=== PATIENT | male | born 1940 | race Caucasian/White ===

== ENCOUNTER 2017-01-18 09:13 | Inpatient (IN) | payer OTHER ==
--- NOTE | 2017-01-18 09:33 | CPEKG ---
Heart Rate: 190 RR Interval: 316 QRSD Interval: 120 QT Interval: 272 QTC Interval: 484 P [place]: 0 QRS [place]: 96 T Wave [place]: -81 EKG Severity - ABNORMAL ECG - EKG Impression: SUPRAVENTRICULAR TACHYCARDIA EKG Impression: NONSPECIFIC INTRAVENTRICULAR CONDUCTION DELAY EKG Impression: CONSIDER ANTEROSEPTAL INFARCT EKG Impression: ST DEPRESSION, PROBABLY RATE RELATED Electronically Signed By: Jose Boone 18-Jan-2017 09:40:23
--- NOTE | 2017-01-18 09:33 | CPEKG ---
Heart Rate: 190 RR Interval: 316 QRSD Interval: 120 QT Interval: 272 QTC Interval: 484 P [place]: 0 QRS [place]: 96 T Wave [place]: -81 EKG Severity - ABNORMAL ECG - EKG Impression: SUPRAVENTRICULAR TACHYCARDIA EKG Impression: NONSPECIFIC INTRAVENTRICULAR CONDUCTION DELAY EKG Impression: CONSIDER ANTEROSEPTAL INFARCT EKG Impression: ST DEPRESSION, PROBABLY RATE RELATED Electronically Signed By: Jose Boone 18-Jan-2017 09:40:23
--- NOTE | 2017-01-18 09:34 | EDPHY ---
H & P Time Seen by Provider: 01/18/17 09:28 HPI/ROS: CHIEF COMPLAINT: Feeling shaky HISTORY OF PRESENT ILLNESS: Patient started feeling this way yesterday afternoon. He feels shaky and a little bit short of breath with exertion. Says symptoms have been intermittent for the last 2 days. He presents without chest pain or shortness of breath. No syncope. A little bit of racing heart rate. REVIEW OF SYSTEMS: Eye: no change in vision ENT: no sore throat Cardiac: HPI Pulmonary: no cough or SOB Abdomen: no vomiting, diarrhea, abdominal pain Musculoskeletal: no back pain Skin: no rash Neuro: no headache Constitutional: no fever : no urinary symptoms A comprehensive 10 point review of systems is otherwise negative aside from elements mentioned in the history of present illness. PAST MEDICAL HISTORY: H&P dated 01/19/2012 reviewed. Includes cardiac ablation for atrial tachycardia, colonoscopy, tonsillectomy. Inguinal hernia repair. Social history: here with spouse General Appearance: Alert and conversant, cooperative. Eyes: No scleral icterus. ENT, Mouth: Normal mucous membranes. Respiratory: Normal respiratory effort, breath sounds equal, lungs are clear to auscultation. Cardiovascular: Tachycardic without murmur. Gastrointestinal: Abdomen is soft and non tender. Neurological: Alert and oriented x3. Normally conversant. Face symmetric, normal movement and sensation in all extremities. Skin: Warm and dry, no rashes. Musculoskeletal: No peripheral edema and no joint swelling. Psychiatric: Not agitated. Emergency Department course/MDM: 952: EKG and case discussed with Plummer recommends cardioversion. Procedure: Procedural sedation. Indication: cardioversion A pre-sedation evaluation was completed on the patient at initial time of evaluation including medical history, allergies and medications, last oral intake, previous experience with sedation, airway assessment, physical examination. Patient is an appropriate candidate for procedural sedation. The risks, benefits, and alternatives of the sedation were discussed with the patient including but not limited to need for airway intervention, cardiovascular complications, ; and consent obtained. The patient is ASA class 2E.Mallampati and 3/3/2 airway assessments were completed. A time out was completed. The patient was sedated with propofol. The patient was monitored with continuous pulse oximetry, court monitor and end tidal CO2. There were no complications and no significant hypoxemia. I remained at the bedside for the sedation. The total time I spent in the procedural sedation was 14 minutes. At 10 18 the patient is alert, awake, and back to neurological and respiratory baseline. Cardioversion was performed by Dr. Plummer from Cardiology. Admission for monitoring and further cardiology evaluation. Smoking Status: Former smoker Constitutional: Initial Vital Signs Temperature (C) 36.4 C 01/18/17 09:18 Heart Rate 92 01/18/17 09:18 Respiratory Rate 18 01/18/17 09:18 Blood Pressure 127/95 H 01/18/17 09:18 O2 Sat (%) 95 01/18/17 09:18 O2 Delivery Mode [Post Nasal Cannula Procedure 2nd] O2 Delivery Mode [Post Nasal Cannula Procedure 1st] O2 Delivery Mode [Procedural Non-Rebreather Mask 2nd] O2 Delivery Mode [Procedural Non-Rebreather Mask 1st] O2 Delivery Mode [.Immediate Non-Rebreather Mask Pre-Procedure] O2 Delivery Mode Room Air O2 (L/minute) [Post Procedure 2 2nd] O2 (L/minute) [Post Procedure 2 1st] O2 (L/minute) [Procedural 2nd] 15 O2 (L/minute) [Procedural 1st] 15 O2 (L/minute) [.Immediate Pre- 15 Procedure] O2 (L/minute) 2 Allergies/Adverse Reactions: carvedilol Allergy (Verified 01/18/17 11:12) Dyspnea Home Medications: Medication Instructions Recorded Aspirin [Aspirin 325 mg (*)] 325 mg PO HS 01/30/16 Budesonide/Formoterol 160/4.5 1 puffs IH BID 01/18/17 [Symbicort 160-4.5 Mcg Inh (*)] Medical Decision Making - Diagnostics EKG Interpretation: 12-lead EKG interpreted by me; official reading is in trace master. My interpretation is wide complex tachycardia at 190. Imaging Results: Imaging Impressions Chest X-Ray 01/18/17 10:13 Impression: Streaky basilar opacities suggesting atelectasis. Differential Diagnosis: Differential considered including but not limited to SVT, AFib, ventricular tachycardia, hyperkalemia. Consult/Admit Bed Type: [place] [id number] Critical Care Time: Critical care time spent by me, Dr. Boone, exclusively with the care of this patient was 30 minutes, exclusive of PA or PHOTOGRAPHIC LABORATORY TECHNICIAN time and exclusive of separate procedures including cardioversion or procedural sedation. The organ system at risk was cardiovascular and I ordered consultation with Cardiology, multiple EKGs, continuous monitoring, review of studies; to stabilize the patient and prevent worsening of the patient's condition. - Data Points Laboratory Results: Laboratory Results 01/18/17 09:26 01/18/17 09:26 01/18/17 01/18/17 01/18/17 09:26 09:26 09:26 WBC 12.76 10^3/uL H 10^3/uL (3.80-9.50) RBC 5.91 10^6/uL 10^6/uL (4.40-6.38) Hgb 18.3 g/dL H g/dL (13.7-17.5) Hct 54.1 % H % (40.0-51.0) MCV 91.5 fL fL (81.5-99.8) MCH 31.0 pg pg (27.9-34.1) MCHC 33.8 g/dL g/dL (32.4-36.7) RDW 14.4 % % (11.5-15.2) Plt Count 296 10^3/uL 10^3/uL (150-400) MPV 10.5 fL fL (8.7-11.7) Neut % (Auto) 71.2 % % (39.3-74.2) Lymph % (Auto) 16.0 % % (15.0-45.0) [place] % (Auto) 10.4 % % (4.5-13.0) Eos % (Auto) 1.2 % % (0.6-7.6) Baso % (Auto) 0.7 % % (0.3-1.7) Nucleat RBC Rel Count 0.0 % % (0.0-0.2) Absolute Neuts (auto) 9.09 10^3/uL H 10^3/uL (1.70-6.50) Absolute Lymphs (auto) 2.04 10^3/uL 10^3/uL (1.00-3.00) Absolute Monos (auto) 1.33 10^3/uL H 10^3/uL (0.30-0.80) Absolute Eos (auto) 0.15 10^3/uL 10^3/uL (0.03-0.40) Absolute Basos (auto) 0.09 10^3/uL 10^3/uL (0.02-0.10) Absolute Nucleated RBC 0.00 10^3/uL 10^3/uL (0-0.01) Immature Gran % 0.5 % % (0.0-1.1) Immature Gran # 0.06 10^3/uL 10^3/uL (0.00-0.10) PT 13.7 SEC SEC (12.0-15.0) INR 1.06 (0.83-1.16) APTT 29.8 SEC SEC (23.0-38.0) Sodium 142 mEq/L mEq/L (134-144) Potassium 4.6 mEq/L mEq/L (3.5-5.2) Chloride 105 mEq/L mEq/L (97-110) Carbon Dioxide 23 mEq/l mEq/l (22-31) Anion Gap 14 mEq/L mEq/L (8-16) BUN 18 mg/dL mg/dL (7-23) Creatinine 1.0 mg/dL mg/dL (0.7-1.3) Estimated GFR > 60 Glucose 108 mg/dL H mg/dL (70-100) Calcium 9.3 mg/dL mg/dL (8.5-10.4) Troponin I 0.078 ng/mL H ng/mL (0.000-0.034) Medications Given: Discontinued Medications Adenosine (Adenosine) 12 mg IVP EDNOW ONE Stop: 01/18/17 10:30 Last Admin: 01/18/17 10:02 Dose: 6 mg Sodium Chloride (Ns) 1,000 mls @ 0 mls/hr IV ONCE ONE PRN Reason: Wide Open Stop: 01/18/17 10:49 Last Admin: 01/18/17 10:05 Dose: 1,000 mls Propofol (Diprivan) 100 mg IVP EDNOW ONE Stop: 01/18/17 10:30 Last Admin: 01/18/17 10:00 Dose: 100 mg Departure - Departure Disposition: [facility] Acute Clinical Impression: Ventricular tachycardia Condition: Fair
[2017-01-18] MEDS ORDERED: ADENOSINE 6 MG/2 ML VIAL ONE (09:36)
[2017-01-18] MEDS ORDERED: PROPOFOL 200 MG/20 ML VIAL ONE (09:55)
--- NOTE | 2017-01-18 10:13 | CPEKG ---
Heart Rate: 71 RR Interval: 845 P-R Interval: 192 QRSD Interval: 118 QT Interval: 408 QTC Interval: 444 P [place]: 64 QRS [place]: 83 T Wave [place]: 56 EKG Severity - ABNORMAL ECG - EKG Impression: SINUS RHYTHM EKG Impression: MULTIPLE ATRIAL PREMATURE COMPLEXES EKG Impression: INCOMPLETE RIGHT BUNDLE BRANCH BLOCK Electronically Signed By: Jose Boone 18-Jan-2017 11:38:34
[2017-01-18 10:17] LABS: PLATELET COUNT 296 10^3/uL (150-400)
[2017-01-18 10:22] LABS: INR 1.06 (0.83-1.16); PROTIME(PATIENT) 13.7 SEC (12.0-15.0)
[2017-01-18] MEDS ORDERED: ADENOSINE 6 MG/2 ML VIAL IVP ONE (10:29)
[2017-01-18] MEDS ORDERED: PROPOFOL 200 MG/20 ML VIAL IVP ONE (10:29)
[2017-01-18] MEDS ORDERED: NS 1,000 ML IV ONE (10:48)
--- NOTE | 2017-01-18 11:56 | EPPROC ---
Electrophysiology Procedure Note: Procedure: DCCV Indication : WCT with palpitations Procedure: Pt sedated by Dr Boone. Once sedated, Adenosine given, no change in WCT. Pt was then CV at 200J. Pt successfully converted to SR Conclusion: Successful Conversion to SR Patient Problems: Problems Problem Status Onset Ventricular tachycardia Acute
[2017-01-18] MEDS ORDERED: ACETAMINOPHEN 325 MG TAB PO PRN (11:59)
[2017-01-18] MEDS ORDERED: ONDANSETRON 4 MG/2 ML VIAL IVP PRN (11:59)
[2017-01-18] MEDS ORDERED: ONDANSETRON DISINTEGRATING 4 MG TAB PO PRN (11:59)
--- NOTE | 2017-01-18 12:54 | GCON ---
[f rep st] CONSULTATION HISTORY OF PRESENT ILLNESS: This is of 76-year-old patient with past history of nonobstructive coronary artery disease, but nonspecific cardiomyopathy with global hypokinesia and PVCs coming from the left lateral side for which he went underwent ablation, atrial tachycardia for which he went underwent ablation 18 years back, who started feeling palpitations yesterday afternoon, feeling shaky and a little short of breath without any presyncope or syncope. He denies any chest pain or pressure. He feels the racing of his heart and minimally lightheaded. He has not felt that in the past. In the past, he had skipped beats on and off for which he was evaluated by Dr. Dennis Bright, and who had done his PVC ablation. When I saw him in the emergency room, the patient was in ventricular tachycardia at 188 beats per minute, with a blood pressure of 160 /110. His EKG shows left bundle morphology with inferior axis. The transition was between V2 and V3 compared to his previous PVCs, and they were of right bundle morphology in anterior axis. He has not had VT in the past. REVIEW OF SYSTEMS: Other than the above is negative. PAST MEDICAL HISTORY: Cardiac ablation as mentioned above, colonoscopy, tonsillectomy, and inguinal hernia repair. SOCIAL HISTORY: . Spouse is by the bedside. ALLERGIES: Carvedilol. SOCIAL HISTORY: As mentioned above. FAMILY HISTORY: Noncontributory. PHYSICAL EXAMINATION: VITAL SIGNS: Blood pressure of 117/65, heart rate of 180 , which eventually decreased to 82. HEENT: Pupils equal reacting to light, accommodating. NECK: No JVD. No thyromegaly. No lymphadenopathy. CHEST: Good air entry bilaterally equal. No rales, rhonchi, rub. CARDIAC: S1, S2 regular. No S3. No murmurs. ABDOMEN: Soft, nontender. No guarding or rigidity. Bowel sounds present. EXTREMITIES: No edema. LABORATORY DATA: Show white count of 12.76. Chemistry shows troponin of 0.078 and glucose of 108. Last cardiac catheterization was performed in 2015, which showed mild-to- moderate coronary artery disease with no flow limitation. Mildly decreased LV function of 45% to 50%. EMERGENCY ROOM COURSE: The patient was in ventricular tachycardia. We sedated the patient, gave adenosine. There was no change. VA dissociation was noted during the rhythm strip, after which the patient was cardioverted. He successfully converted to sinus rhythm. His baseline EKG shows right bundle branch block. The patient recovered well from the cardioversion. IMPRESSION AND PLAN: This is a 76-year-old male with global hypokinesis, who has ventricular tachycardia as diagnosed by ventriculoatrial dissociation and wide-complex tachycardia. The morphology is very dissimilar to his premature ventricular contractions in the past, and based on the adenosine study, it appears that this is not atrial tachycardia with aberrancy, but he has hemodynamically stable ventricular tachycardia. At this point in time, in a 76- year-old with a monomorphic ventricular tachycardia, I am concerned about a scar related to his nonischemic cardiomyopathy, and hence I will recommend cardiac MRI and echocardiogram. If these are normal, I would like to recommend a defibrillator for secondary prevention of sudden cardiac after an episode of ventricular tachycardia. I have explained this to the patient and the family. They understand this and are agreeable to it. With a cardiac MRI, we will try to assess the coronary arteries; however, if we did not succeed there may be a role for coronary angiogram before doing the defibrillator implant. I will discuss this further with the patient once the cardiac MRI results are back. Thank you for letting us participate in the patient's care. Feel free to call with questions. /[id number]/MODL MTDD
--- NOTE | 2017-01-18 13:04 | ECHO ---
[email or web address] [address] [address] Main: [phone] Fax: Transthoracic Echocardiogram Name: GENNARO WAY MR#: [id number] Study Date: 01/18/2017 Study Time: 12:23 PM Date of : 1940 Age: 76 year(s) Height: 180.3 cm (71 in.) Weight: 78.02 kg (172 lb.) BSA: 1.98 m2 Gender: Male Examination: Echo Indication: Ventricular tachycardia Image Quality: Contrast: Requested by: Sylvester Plummer BP: 99 mmHg/71 mmHg Heart Rate: Rhythm: Indication: Ventricular tachycardia Procedure Staff Differential Tester: Emilia Garcia Reading Physician: Sylvester Plummer Requesting Provider: Conclusions: Normal global systolic LV function. EF is 66 %. Mild mitral valve regurgitation is present. Trivial aortic valve regurgitation. Mild tricuspid regurgitation is present. Trivial pulmonic valve regurgitation. Measurements: Chambers Valvular Assessment AV/MV Valvular Assessment TV/PV Normal Normal Normal Name Value Range Name Value Range Name Value Range Ao Clrae (MM): 4.3 cm (2.2 cm-3.7 AV Vmax: 0.95 m/s (1 m/s-1.7 cm) m/s) IVSd (2D): 0.7 cm (0.6 cm-1.1 AV maxP mmHg ( - ) cm) MV E Vmax: 0.50 m/s ( - ) LVDd (2D): 5.1 cm (4.2 cm-5.9 MV A Vmax: 0.67 m/s ( - ) cm) MV E/A: 0.75 ( - ) LVDs (2D): 3.1 cm (2.1 cm-4 cm) LVPWd (2D): 0.8 cm (0.6 cm-1 cm) LVEF (MOD4): 66 % (>=55 %) Continued Measurements: Chambers Valvular Assessment AV/MV Name Value Name Value LADs: 3.9 cm MV E/E' Septal: 9.90 LADs Lon.2 cm MV E/E' Lateral: 8.50 LA Area: 18.1 cm2 Patient: GENNARO WAY Study Date: 01/18/2017 Page 1 of 2 12:23 PM Additional Vessels Name Value Ao Ascendin.0 cm Findings: Left Ventricle: Normal size left ventricle. No LV hypertrophy. Normal global systolic LV function. EF is 66 %. No regional wall motion abnormality. Right Ventricle: Normal size right ventricle. Left Atrium: The left atrium is normal in size. Right Atrium: The right atrium is normal in size. Mitral Valve: The mitral valve is normal in appearance and function. Mild mitral valve regurgitation is present. Aortic Valve: The aortic valve is normal in appearance and function. Trivial aortic valve regurgitation. Tricuspid Valve: The tricuspid valve is normal in appearance and function. Mild tricuspid regurgitation is present. Pulmonic Valve: The pulmonic valve is normal in appearance and function. Trivial pulmonic valve regurgitation. Aorta: Borderline ascending aorta dilatation.. The aorta is normal. Pericardium: No pericardial effusion. (No Signature Object) Patient: GENNARO WAY Study Date: 01/18/2017 Page 2 of 2 12:23 PM [id number]
--- NOTE | 2017-01-18 13:04 | ECHO ---
[email or web address] [address] [address] Main: [phone] Fax: Transthoracic Echocardiogram Name: GENNARO WAY MR#: [id number] Study Date: 01/18/2017 Study Time: 12:23 PM Date of : 1940 Age: 76 year(s) Height: 180.3 cm (71 in.) Weight: 78.02 kg (172 lb.) BSA: 1.98 m2 Gender: Male Examination: Echo Indication: Ventricular tachycardia Image Quality: Contrast: Requested by: Sylvester Plummer BP: 99 mmHg/71 mmHg Heart Rate: Rhythm: Indication: Ventricular tachycardia Procedure Staff Programming Manager: Emilia Garcia Reading Physician: Sylvester Plummer Requesting Provider: Conclusions: Normal global systolic LV function. EF is 66 %. Mild mitral valve regurgitation is present. Trivial aortic valve regurgitation. Mild tricuspid regurgitation is present. Trivial pulmonic valve regurgitation. Measurements: Chambers Valvular Assessment AV/MV Valvular Assessment TV/PV Normal Normal Normal Name Value Range Name Value Range Name Value Range Ao Clare (MM): 4.3 cm (2.2 cm-3.7 AV Vmax: 0.95 m/s (1 m/s-1.7 cm) m/s) IVSd (2D): 0.7 cm (0.6 cm-1.1 AV maxP mmHg ( - ) cm) MV E Vmax: 0.50 m/s ( - ) LVDd (2D): 5.1 cm (4.2 cm-5.9 MV A Vmax: 0.67 m/s ( - ) cm) MV E/A: 0.75 ( - ) LVDs (2D): 3.1 cm (2.1 cm-4 cm) LVPWd (2D): 0.8 cm (0.6 cm-1 cm) LVEF (MOD4): 66 % (>=55 %) Continued Measurements: Chambers Valvular Assessment AV/MV Name Value Name Value LADs: 3.9 cm MV E/E' Septal: 9.90 LADs Lon.2 cm MV E/E' Lateral: 8.50 LA Area: 18.1 cm2 Patient: GENNARO WAY Study Date: 01/18/2017 Page 1 of 2 12:23 PM Additional Vessels Name Value Ao Ascendin.0 cm Findings: Left Ventricle: Normal size left ventricle. No LV hypertrophy. Normal global systolic LV function. EF is 66 %. No regional wall motion abnormality. Right Ventricle: Normal size right ventricle. Left Atrium: The left atrium is normal in size. Right Atrium: The right atrium is normal in size. Mitral Valve: The mitral valve is normal in appearance and function. Mild mitral valve regurgitation is present. Aortic Valve: The aortic valve is normal in appearance and function. Trivial aortic valve regurgitation. Tricuspid Valve: The tricuspid valve is normal in appearance and function. Mild tricuspid regurgitation is present. Pulmonic Valve: The pulmonic valve is normal in appearance and function. Trivial pulmonic valve regurgitation. Aorta: Borderline ascending aorta dilatation.. The aorta is normal. Pericardium: No pericardial effusion. (No Signature Object) Patient: GENNARO WAY Study Date: 01/18/2017 Page 2 of 2 12:23 PM [id number]
--- NOTE | 2017-01-18 13:04 | ECHO ---
[email or web address] [address] [address] Main: [phone] Fax: Transthoracic Echocardiogram Name: GENNARO WAY MR#: [id number] Study Date: 01/18/2017 Study Time: 12:23 PM Date of : 1940 Age: 76 year(s) Height: 180.3 cm (71 in.) Weight: 78.02 kg (172 lb.) BSA: 1.98 m2 Gender: Male Examination: Echo Indication: Ventricular tachycardia Image Quality: Contrast: Requested by: Sylvester Plummer BP: 99 mmHg/71 mmHg Heart Rate: Rhythm: Indication: Ventricular tachycardia Procedure Staff Ornamental Metal Erector Apprentice: Emilia Garcia Reading Physician: Sylvester Plummer Requesting Provider: Conclusions: Normal global systolic LV function. EF is 66 %. Mild mitral valve regurgitation is present. Trivial aortic valve regurgitation. Mild tricuspid regurgitation is present. Trivial pulmonic valve regurgitation. Measurements: Chambers Valvular Assessment AV/MV Valvular Assessment TV/PV Normal Normal Normal Name Value Range Name Value Range Name Value Range Ao [place] (MM): 4.3 cm (2.2 cm-3.7 AV Vmax: 0.95 m/s (1 m/s-1.7 cm) m/s) IVSd (2D): 0.7 cm (0.6 cm-1.1 AV maxP mmHg ( - ) cm) MV E Vmax: 0.50 m/s ( - ) LVDd (2D): 5.1 cm (4.2 cm-5.9 MV A Vmax: 0.67 m/s ( - ) cm) MV E/A: 0.75 ( - ) LVDs (2D): 3.1 cm (2.1 cm-4 cm) LVPWd (2D): 0.8 cm (0.6 cm-1 cm) LVEF (MOD4): 66 % (>=55 %) Continued Measurements: Chambers Valvular Assessment AV/MV Name Value Name Value LADs: 3.9 cm MV E/E' Septal: 9.90 LADs Lon.2 cm MV E/E' Lateral: 8.50 LA Area: 18.1 cm2 Patient: GENNARO WAY Study Date: 01/18/2017 Page 1 of 2 12:23 PM Additional Vessels Name Value Ao Ascendin.0 cm Findings: Left Ventricle: Normal size left ventricle. No LV hypertrophy. Normal global systolic LV function. EF is 66 %. No regional wall motion abnormality. Right Ventricle: Normal size right ventricle. Left Atrium: The left atrium is normal in size. Right Atrium: The right atrium is normal in size. Mitral Valve: The mitral valve is normal in appearance and function. Mild mitral valve regurgitation is present. Aortic Valve: The aortic valve is normal in appearance and function. Trivial aortic valve regurgitation. Tricuspid Valve: The tricuspid valve is normal in appearance and function. Mild tricuspid regurgitation is present. Pulmonic Valve: The pulmonic valve is normal in appearance and function. Trivial pulmonic valve regurgitation. Aorta: Borderline ascending aorta dilatation.. The aorta is normal. Pericardium: No pericardial effusion. (No Signature Object) Patient: GENNARO WAY Study Date: 01/18/2017 Page 2 of 2 12:23 PM [id number]
[2017-01-18] MEDS ORDERED: GADOBUTROL 10 ML VIAL IVP ONE (14:57)
[2017-01-18] MEDS ORDERED: LORazepam 0.5 MG TAB PO ONE (18:09)
--- NOTE | 2017-01-18 18:40 | GHP ---
[f rep st] HISTORY AND PHYSICAL DATE OF ADMISSION: 01/18/2017 CHIEF COMPLAINT: Palpitations. HISTORY OF PRESENT ILLNESS: A 76-year-old male with a history of nonobstructive coronary artery dise ase, as well as atrial tachycardia and bigeminy, who presented to the emergency department today with persistent palpitations and associated shortness of breath. When he was evaluated in the emergency department, was noted to be shaky and appeared lightheaded. On monitor, he had ventricular tachycard ia with heart rates in the 190s. Patient was electively DC cardioverted in the emergency department. After cardioversion, patient is feeling quite well. Denies lightheadedness, palpitations, headache, vision changes, chest pain, shortness of breath, nausea, vomiting, diarrhea, dysuria, or lower extrem ity edema. He describes that prior to the episode today, he has been able to hike and engage in his outdoor activities, even at elevation, without complication. PAST MEDICAL HISTORY: 1. Multiple cardiac ablations for atrial tachycardia and bigeminy. 2. Nonobstructive coronary disease. SOCIAL HISTORY: Negative for tobacco, alcohol, or illicit drugs. FAMILY HISTORY: Negative for cardiac arrhythmias. REVIEW OF SYSTEMS: A 10-point review of systems is negative with the exception of that reported in t he HPI. PHYSICAL EXAMINATION: VITAL SIGNS: Blood pressure is 101/52, heart rate 70, respiratory rate 16, 92 % on room air, 36.5. GENERAL: This is a very healthy-appearing, middle-aged male in no acute distre ss. HEENT: Notable for moist mucous membranes. Eye exam is negative for any icterus. CARDIAC: Pa tient is regular rate and rhythm. No discernible murmurs are auscultated. PULMONARY: Good respirat ory effort. Clear to auscultation bilaterally. GASTROINTESTINAL: Positive bowel sounds. ABDOMEN: Soft and nontender in all 4 quadrants. MUSCULOSKELETAL: Negative for any lower extremity edema. S KIN: Negative for any rashes. NEUROLOGIC: He is alert and oriented x3. PSYCHIATRIC: He is pleasa nt and cooperative on interview and examination. DATA: EKG, which I personally reviewed and interpreted, shows ventricular tachycardia with heart rat es in the 180s. Chest x-ray, which I personally reviewed and interpreted, shows no acute infiltrates or edema. LABORATORY DATA: White count 12.7. Troponin 0.07. Creatinine 1.0. ASSESSMENT AND PLAN: This is a 76-year-old male, with previous history of arrhythmias, presented wit h palpitations. 1. Ventricular tachycardia. The patient was symptomatic, was cardioverted in the emergency departme . On my evaluation, is in sinus rhythm. We will obtain a workup including repeat troponins and ca rdiac MRI in anticipation of defibrillator placement tomorrow. No new antiarrhythmics have been init iated, will continue patient's aspirin per his outpatient medication regimen. 2. Acute leukocytosis, suspect related to the stress of the patient's presentation, will recheck in the morning. 3. Prophylaxis. The patient is ambulatory, will not give Lovenox tomorrow in anticipation of the pr ocedure. 4. Diet: Cardiac. N.p.o. after midnight. DISPOSITION: I expect greater than 2 midnights, as patient will require this evening for evaluation, preprocedure, and an evening of monitoring post defibrillator placement. I have discussed the case with the emergency room physician. Patient will be triaged to the PCU for care and monitoring. /[id number]
[2017-01-18] MEDS: BUDESONIDE/FORMOTEROL 160/4.5 60 PUFFS/MDI IH SCH (19:59)
[2017-01-18] MEDS: ASPIRIN 325 MG TAB PO SCH (20:50)
[2017-01-19 05:27] LABS: INR 1.16 (0.83-1.16); PROTIME(PATIENT) 14.8 SEC (12.0-15.0)
[2017-01-19 05:34] LABS: PLATELET COUNT 209 10^3/uL (150-400)
[2017-01-19] MEDS ORDERED: ceFAZolin 2 GM/SWFI 2 GM/20 ML SYR IVP ONE (06:00)
[2017-01-19] MEDS ORDERED: NS 1,000 ML IV ONE (06:00)
[2017-01-19] MEDS ORDERED: BACITRACIN IRRIGATION/NS 50,000 UNITS/1,000 ML BTL IRR ONE (06:00)
[2017-01-19] MEDS: BUDESONIDE/FORMOTEROL 160/4.5 60 PUFFS/MDI IH SCH ×2 (09:10→20:43)
--- NOTE | 2017-01-19 09:37 | PDMN ---
Medical Necessity Medical necessity: Pt meets IP criteria per MD; est los >2 mn for eval/tx of Vtach/defibrillator placement & acute leukocytosis; hx nonobstructive CAD, atrial tachycardia & bigeminy; per H&P 01/18/17
[2017-01-19] MEDS ORDERED: fentaNYL 100 MCG/2 ML INJ ONE ×2 (11:47→13:52)
[2017-01-19] MEDS ORDERED: MIDAZOLAM 2 MG/2 ML VIAL ONE ×2 (11:47→13:52)
[2017-01-19] MEDS ORDERED: LIDO/EPI 1% **for epidural** 30 ML SDV ONE (11:47)
[2017-01-19] MEDS ORDERED: BUPIVACAINE 0.5% 30 ML SDV ONE (11:47)
[2017-01-19] MEDS ORDERED: LIDOCAINE 1% 300 MG/30 ML SDV ONE (11:47)
--- NOTE | 2017-01-19 12:32 | PDPROPOC ---
Sedation Plan of Care Sedation Plan of Care: mental status noted, patient educated of risks, benefits , alternatives, patient can tolerate sedation ASA Classification: ASA 3 Planned drugs: fentanyl, midazolam Mallampati Score: Class 3 Mallampati Reference Image: Patient passed 3-3-2 rule?: Yes
[2017-01-19] MEDS ORDERED: IOPAMIDOL (ISOVUE-300) 100 ML BTL ONE (12:51)
--- NOTE | 2017-01-19 14:54 | HOSPPROG ---
Hospitalist Progress Note Assessment/Plan: # Ventricular Tachycardia - s/p cardioversion in ED MRI heart (personally reviewed and interpreted) diminished EF 44% no dysplasia oxygen saturations 92% on RA - NPO for defibrillator today - continue TELE # Acute Leukocytosis - resolved overnight without intervention - WBC 12-> 6 # proph - pt ambulating # dispo - >2MN as needs post procedure monitoring I have discussed the case with Dr. Plummer - pt for defibrillator today Subjective: no palpitations overnight Objective: Vital Signs Temp Pulse Resp BP Pulse Ox 36.5 C 44 L 16 134/71 H 92 01/19/17 11:26 01/19/17 11:26 01/19/17 11:26 01/19/17 11:26 01/19/17 11:26 Laboratory Results 01/19/17 04:00 01/19/17 04:00 01/18/17 01/19/17 01/20/17 05:59 05:59 05:59 Intake Total 300 Output Total 650 500 Balance -350 -500 PT 14.8 SEC (12.0-15.0) 01/19/17 04:00 INR 1.16 (0.83-1.16) 01/19/17 04:00 - Physical Exam Constitutional: no apparent distress Eyes: anicteric sclera Ears, Nose, Mouth, Throat: moist mucous membranes Cardiovascular: regular rate and rhythym, systolic murmur Respiratory: no respiratory distress Gastrointestinal: normoactive bowel sounds, soft, non-tender abdomen Genitourinary: no bladder fullness Skin: warm, normal color Musculoskeletal: No asymmetric calves Neurologic: AAOx3 Psychiatric: interacting appropriately Lymph, Heme, Immunologic: no cervical LAD ICD10 Worksheet Patient Problems: Problems Problem Status Onset Ventricular tachycardia Acute
--- NOTE | 2017-01-19 15:07 | ASMTCMCOM ---
CM Note CM Note Notes: 01/19/2017 Case Management Note Reviewed chart, spoke w/RN and MD. No case management d/c needs identified d/t pt age, marital status and activity levels prior to admission. No PT or OT evals ordered. Case Management d/c poc: Home with family support when medically stable with follow up as directed. Date Signed: 01/19/2017 03:06 PM Electronically Signed By:Mary Arnett RN
--- NOTE | 2017-01-19 17:17 | EPPROC ---
Electrophysiology Procedure Note: PROCEDURE PERFORMED: 1. Implantation of an V Implantable Cardioverter Defibrillator 4. EP study induction of ventricular fibrillation and defibrillation testing INDICATION: This is a 76 yr old with cardiomyopathy of unknown etiology who came with palpitaitons and was found to be in VT. Pt was cardioverted from it. For the purposes of secondary prevention of SCD in a patient with VT and cardiomyopathy it was was decided to implant ICD. PROCEDURE NOTE: Patient presented to the cardiac catheterization laboratory in a fasting, post absorptive state. Moderate sedation administered . The left infraclavicular area was prepped and draped in the usual sterile fashion. Lidocaine plus bupivacaine was used for local anesthesia. This was done to assure patency of the vein and also to assess for any anatomical aberrations. Using a combination of blunt and sharp dissection and electrocautery, the dissection was carried down to the prepectoral fascia. A pocket was made in this anatomical plane. All bleeding was controlled with electrocautery. The pocket was packed with gauze soaked in antibiotic solution. Fluoroscopy was utilized during the entire procedure for venous access and placement of the lead. Using usual technique, left cephalic vein was access and a glide wire was placed. Placement of the guidewire into the venous system was confirmed by low- pressure blood return and also by visualizing the guidewire advancing into the inferior vena cava. A purse string suture was applied around the guidewire. One #10 Turkmen sheath was advanced under fluoroscopic guidance over the guidewire. An active fixation ventricular ICD lead was advanced into the right ventricular apex and screwed in place. The peel away sheath was removed. Pacing thresholds, sensing parameters and lead impedances were measured. There was no diaphragmatic stimulation at maximum output. The lead was sutured to the prepectoral fascia with 3 nonabsorbable sutures. The gauze packing was removed from the ICD pocket. The pocket was again inspected for any bleeding. The lead was attached to the ICD securely. The ICD was inserted into the pocket and secured in place with a nonabsorbable suture. Fluoroscopy was performed in MORALES and KHMER planes to verify right sided placement of the lead. Also fluoroscopy of the ICD pocket was performed. Defibrillation testing was performed. Good sensing was noted. The ICD pocket was closed in 2 layers with vicryl Appropriate dressing was applied. The patient left the cardiac catheterization laboratory in stable condition. Serial Numbers: 1. Device : [employer] 7 VR T SN [id number] 2. Ventricular Lead: [employer] Plexa ProMRI DF 1 SN [id number] Stimulation Thresholds & Impedance Measurements: 1. Ventricular Lead 3.5mV, 0.8@0.4ms, 606Ohms Defibrillation testing: Ventricular fibrillation was induced by T-shock. The device sensed the ventricular fibrillation appropriately at minimum ventricular sensitivity (1.2 mV). A single DC shock of 25J Joule converted the ventricular fibrillation to sinus rhythm. Ventricular sensitivity was permanent programmed to 0.3mV. Pacing Parameters: 1. Pacing mode VVI 2. Lower rate 40 ppm Tachycardia therapy parameters: VT zone: Detection: 150 - 170 bpm Monitor only FVT" First therapy : ATP 85% TCL, 8 beats, 2 sequences ATP 80% TCL, 8 beats, 2 sequences ATP 75% TCL, 8 beats, 2 sequences Second therapy: 40 Joule Subsequent therapies : 40 Joule VF zone : Detection: 214 bpm First therapy: 40 Joule Subsequent therapies: 40 Joule Patient Problems: Problems Problem Status Onset Ventricular tachycardia Acute
--- NOTE | 2017-01-19 17:17 | EPPROC ---
Electrophysiology Procedure Note: PROCEDURE PERFORMED: 1. Implantation of an V Implantable Cardioverter Defibrillator 4. EP study induction of ventricular fibrillation and defibrillation testing INDICATION: This is a 76 yr old with cardiomyopathy of unknown etiology who came with palpitaitons and was found to be in VT. Pt was cardioverted from it. For the purposes of secondary prevention of SCD in a patient with VT and cardiomyopathy it was was decided to implant ICD. PROCEDURE NOTE: Patient presented to the cardiac catheterization laboratory in a fasting, post absorptive state. Moderate sedation administered . The left infraclavicular area was prepped and draped in the usual sterile fashion. Lidocaine plus bupivacaine was used for local anesthesia. This was done to assure patency of the vein and also to assess for any anatomical aberrations. Using a combination of blunt and sharp dissection and electrocautery, the dissection was carried down to the prepectoral fascia. A pocket was made in this anatomical plane. All bleeding was controlled with electrocautery. The pocket was packed with gauze soaked in antibiotic solution. Fluoroscopy was utilized during the entire procedure for venous access and placement of the lead. Using usual technique, left cephalic vein was access and a glide wire was placed. Placement of the guidewire into the venous system was confirmed by low- pressure blood return and also by visualizing the guidewire advancing into the inferior vena cava. A purse string suture was applied around the guidewire. One #10 Frisian sheath was advanced under fluoroscopic guidance over the guidewire. An active fixation ventricular ICD lead was advanced into the right ventricular apex and screwed in place. The peel away sheath was removed. Pacing thresholds, sensing parameters and lead impedances were measured. There was no diaphragmatic stimulation at maximum output. The lead was sutured to the prepectoral fascia with 3 nonabsorbable sutures. The gauze packing was removed from the ICD pocket. The pocket was again inspected for any bleeding. The lead was attached to the ICD securely. The ICD was inserted into the pocket and secured in place with a nonabsorbable suture. Fluoroscopy was performed in MORALES and ALBANIAN planes to verify right sided placement of the lead. Also fluoroscopy of the ICD pocket was performed. Defibrillation testing was performed. Good sensing was noted. The ICD pocket was closed in 2 layers with vicryl Appropriate dressing was applied. The patient left the cardiac catheterization laboratory in stable condition. Serial Numbers: 1. Device : [employer] 7 VR T SN [id number] 2. Ventricular Lead: [employer] Plexa ProMRI DF 1 SN [id number] Stimulation Thresholds & Impedance Measurements: 1. Ventricular Lead 3.5mV, 0.8@0.4ms, 606Ohms Defibrillation testing: Ventricular fibrillation was induced by T-shock. The device sensed the ventricular fibrillation appropriately at minimum ventricular sensitivity (1.2 mV). A single DC shock of 25J Joule converted the ventricular fibrillation to sinus rhythm. Ventricular sensitivity was permanent programmed to 0.3mV. Pacing Parameters: 1. Pacing mode VVI 2. Lower rate 40 ppm Tachycardia therapy parameters: VT zone: Detection: 150 - 170 bpm Monitor only FVT" First therapy : ATP 85% TCL, 8 beats, 2 sequences ATP 80% TCL, 8 beats, 2 sequences ATP 75% TCL, 8 beats, 2 sequences Second therapy: 40 Joule Subsequent therapies : 40 Joule VF zone : Detection: 214 bpm First therapy: 40 Joule Subsequent therapies: 40 Joule Patient Problems: Problems Problem Status Onset Ventricular tachycardia Acute
--- NOTE | 2017-01-19 17:17 | EPPROC ---
Electrophysiology Procedure Note: PROCEDURE PERFORMED: 1. Implantation of an V Implantable Cardioverter Defibrillator 4. EP study induction of ventricular fibrillation and defibrillation testing INDICATION: This is a 76 yr old with cardiomyopathy of unknown etiology who came with palpitaitons and was found to be in VT. Pt was cardioverted from it. For the purposes of secondary prevention of SCD in a patient with VT and cardiomyopathy it was was decided to implant ICD. PROCEDURE NOTE: Patient presented to the cardiac catheterization laboratory in a fasting, post absorptive state. Moderate sedation administered . The left infraclavicular area was prepped and draped in the usual sterile fashion. Lidocaine plus bupivacaine was used for local anesthesia. This was done to assure patency of the vein and also to assess for any anatomical aberrations. Using a combination of blunt and sharp dissection and electrocautery, the dissection was carried down to the prepectoral fascia. A pocket was made in this anatomical plane. All bleeding was controlled with electrocautery. The pocket was packed with gauze soaked in antibiotic solution. Fluoroscopy was utilized during the entire procedure for venous access and placement of the lead. Using usual technique, left cephalic vein was access and a glide wire was placed. Placement of the guidewire into the venous system was confirmed by low- pressure blood return and also by visualizing the guidewire advancing into the inferior vena cava. A purse string suture was applied around the guidewire. One #10 Pashto sheath was advanced under fluoroscopic guidance over the guidewire. An active fixation ventricular ICD lead was advanced into the right ventricular apex and screwed in place. The peel away sheath was removed. Pacing thresholds, sensing parameters and lead impedances were measured. There was no diaphragmatic stimulation at maximum output. The lead was sutured to the prepectoral fascia with 3 nonabsorbable sutures. The gauze packing was removed from the ICD pocket. The pocket was again inspected for any bleeding. The lead was attached to the ICD securely. The ICD was inserted into the pocket and secured in place with a nonabsorbable suture. Fluoroscopy was performed in MORALES and GE[place]GI[place] planes to verify right sided placement of the lead. Also fluoroscopy of the ICD pocket was performed. Defibrillation testing was performed. Good sensing was noted. The ICD pocket was closed in 2 layers with vicryl Appropriate dressing was applied. The patient left the cardiac catheterization laboratory in stable condition. Serial Numbers: 1. Device : [employer] 7 VR T SN [id number] 2. Ventricular Lead: [employer] Plexa ProMRI DF 1 SN [id number] Stimulation Thresholds & Impedance Measurements: 1. Ventricular Lead 3.5mV, 0.8@0.4ms, 606Ohms Defibrillation testing: Ventricular fibrillation was induced by T-shock. The device sensed the ventricular fibrillation appropriately at minimum ventricular sensitivity (1.2 mV). A single DC shock of 25J Joule converted the ventricular fibrillation to sinus rhythm. Ventricular sensitivity was permanent programmed to 0.3mV. Pacing Parameters: 1. Pacing mode VVI 2. Lower rate 40 ppm Tachycardia therapy parameters: VT zone: Detection: 150 - 170 bpm Monitor only FVT" First therapy : ATP 85% TCL, 8 beats, 2 sequences ATP 80% TCL, 8 beats, 2 sequences ATP 75% TCL, 8 beats, 2 sequences Second therapy: 40 Joule Subsequent therapies : 40 Joule VF zone : Detection: 214 bpm First therapy: 40 Joule Subsequent therapies: 40 Joule Patient Problems: Problems Problem Status Onset Ventricular tachycardia Acute
[2017-01-19] MEDS: ASPIRIN 325 MG TAB PO SCH (20:44)
[2017-01-20 04:34] LABS: PLATELET COUNT 173 10^3/uL (150-400)
[2017-01-20 07:27] VITALS: BP 128/95; RESP 18; TEMP 98.3
[2017-01-20] MEDS: BUDESONIDE/FORMOTEROL 160/4.5 60 PUFFS/MDI IH SCH (08:57)
--- NOTE | 2017-01-20 09:11 | CPEKG ---
Heart Rate: 82 RR Interval: 732 P-R Interval: 168 QRSD Interval: 122 QT Interval: 404 QTC Interval: 472 P [place]: 73 QRS [place]: 92 T Wave [place]: 54 EKG Severity - ABNORMAL ECG - EKG Impression: SINUS RHYTHM EKG Impression: RIGHT BUNDLE BRANCH BLOCK Electronically Signed By: Moe Bridges 20-Jan-2017 17:36:47
[2017-01-20 09:21] VITALS: PULSE 86; O2SAT 91
--- NOTE | 2017-01-20 15:54 | ASDISCHSUM ---
Discharge Information Plan Status:Home with No Needs Medically Cleared to Leave:01/19/2017 Discharge Date:01/20/2017 11:18 AM CM D/C Disposition:Home, Routine, Self-Care ADT D/C Disposition:Home, Routine, Self-Care Projected Discharge Date:01/20/2017 12:00 AM Transportation at D/C:Family Discharge Delay Reason: Follow-Up Date:01/20/2017 12:00 AM Discharge Slot: Final Diagnosis: Placement Information Patient Contact Information Contact Name:JENNIFER Relationship: Address:[address] [place] [address] [facility] [facility] City:[facility] Phone: State/Zip Code:[place] [address] Email: Financial Information Financial Class: Primary Plan Desc:MEDICARE INPATIENT Primary Plan Number:[id number] Secondary Plan Desc:[employer] HMO OPEN ACC LOCAL Secondary Plan Number:[id number] Assessment Information [facility] CM Progress Note CM Note CM Note Notes: 01/19/2017 Case Management Note Reviewed chart, spoke w/RN and MD. No case management d/c needs identified d/t pt age, marital status and activity levels prior to admission. No PT or OT evals ordered. Case Management d/c poc: Home with family support when medically stable with follow up as directed. Date Signed: 01/19/2017 03:06 PM Electronically Signed By:Mary Arnett RN Intervention Information Intervention Type:*KELLY-Signed Date of Service:01/20/2017 11:22 AM Patient Type:Inpatient Staff Member:Elva Burton Hours: Discipline: Severity: Comment:
--- NOTE | 2017-01-20 15:54 | ASDISCHSUM ---
Discharge Information Plan Status:Home with No Needs Medically Cleared to Leave:01/19/2017 Discharge Date:01/20/2017 11:18 AM CM D/C Disposition:Home, Routine, Self-Care ADT D/C Disposition:Home, Routine, Self-Care Projected Discharge Date:01/20/2017 12:00 AM Transportation at D/C:Family Discharge Delay Reason: Follow-Up Date:01/20/2017 12:00 AM Discharge Slot: Final Diagnosis: Placement Information Patient Contact Information Contact Name:JENNIFER Relationship: Address:[address] [place] [address] [place] [employer] City:[facility] Phone: State/Zip Code:[place] [address] Email: Financial Information Financial Class: Primary Plan Desc:MEDICARE INPATIENT Primary Plan Number:[id number] Secondary Plan Desc:[employer] HMO OPEN ACC LOCAL Secondary Plan Number:[id number] Assessment Information [facility] CM Progress Note CM Note CM Note Notes: 01/19/2017 Case Management Note Reviewed chart, spoke w/RN and MD. No case management d/c needs identified d/t pt age, marital status and activity levels prior to admission. No PT or OT evals ordered. Case Management d/c poc: Home with family support when medically stable with follow up as directed. Date Signed: 01/19/2017 03:06 PM Electronically Signed By:Mary Arnett RN Intervention Information Intervention Type:*KELLY-Signed Date of Service:01/20/2017 11:22 AM Patient Type:Inpatient Staff Member:Elva Burton Hours: Discipline: Severity: Comment:
--- NOTE | 2017-01-20 15:54 | ASDISCHSUM ---
Discharge Information Plan Status:Home with No Needs Medically Cleared to Leave:01/19/2017 Discharge Date:01/20/2017 11:18 AM CM D/C Disposition:Home, Routine, Self-Care ADT D/C Disposition:Home, Routine, Self-Care Projected Discharge Date:01/20/2017 12:00 AM Transportation at D/C:Family Discharge Delay Reason: Follow-Up Date:01/20/2017 12:00 AM Discharge Slot: Final Diagnosis: Placement Information Patient Contact Information Contact Name:JENNIFER Relationship: Address:[address] [place] [address] [facility] [facility] City:[facility] Phone: State/Zip Code:[place] [address] Email: Financial Information Financial Class: Primary Plan Desc:MEDICARE INPATIENT Primary Plan Number:[id number] Secondary Plan Desc:[employer] OPEN ACC LOCAL Secondary Plan Number:[id number] Assessment Information [facility] CM Progress Note CM Note CM Note Notes: 01/19/2017 Case Management Note Reviewed chart, spoke w/RN and MD. No case management d/c needs identified d/t pt age, marital status and activity levels prior to admission. No PT or OT evals ordered. Case Management d/c poc: Home with family support when medically stable with follow up as directed. Date Signed: 01/19/2017 03:06 PM Electronically Signed By:Mary Arnett RN Intervention Information Intervention Type:*KELLY-Signed Date of Service:01/20/2017 11:22 AM Patient Type:Inpatient Staff Member:Elva Burton Hours: Discipline: Severity: Comment:
--- NOTE | 2017-01-20 17:22 | GDS ---
[f rep st] DISCHARGE SUMMARY DISCHARGE DIAGNOSES: 1. Ventricular tachycardia. 2. History of atrial tachycardia. 3. History of bigeminy. HISTORY OF PRESENT ILLNESS: This is a 76-year-old male, who presents to the Emergency Department wit h complaints of palpitations. On initial evaluation, was found to be in ventricular tachycardia with heart rates in the 190s. For details of the patient's initial presentation, please see the history and physical dated 01/18/2017. CONSULTATIVE SERVICES: Cardiology. PROCEDURES: 01/19/2017, the patient underwent implantable defibrillator. HOSPITAL COURSE: Ventricular tachycardia. The patient has a history of previous dysrhythmias in the past. Presented with palpitations and had confirmed ventricular tachycardia on the EKG. The patien t underwent DC cardioversion in the Emergency Department, and was admitted for cardiac monitoring and anticipated defibrillator placement. The patient had uneventful device implantation. Postprocedure chest imaging was stable. Device is functioning appropriately. The patient was initiated on Bystol ic 2.5 mg at discharge, and is to follow with the outpatient cardiology clinic for device check in 1 week's time, and with Dr. Clarke in several weeks' time. MEDICATIONS AT THE TIME OF TRANSFER: Please reference med rec printed on 01/20/2017. FOLLOWUP APPOINTMENTS: Include with [facility] for device check, as well as ongoing cardiology fo llowup for ventricular tachycardia. PENDING STUDIES: None. TIME SPENT: I spent greater than 30 minutes in the planning and coordination of this discharge. /[id number]/MODL
== END 2017-01-20 11:18 | disposition home or self-care (01) | DRG 227 ==
LOC: F2W 13:56
PROVIDERS: ADMIT Hospitalist; ATTEND Hospitalist
DX: I47.2 Ventricular tachycardia (principal); I25.10 Atherosclerotic heart disease of native coronary artery without angina pectoris; Z87.891 Personal history of nicotine dependence
CPT/HCPCS: 96374; A9585; C1722; C1769; C1777; J0153; J0690; J2250; J2704; J3010; Q9967